=== PATIENT | male | born 1990 | race American Indian/Alaskan Native ===

== ENCOUNTER 2016-11-04 20:35 | Inpatient (IN) | payer OTHER ==
[2016-11-04] MEDS ORDERED: NACL 0.9% 1000 ML 1,000 ML ONE (20:40)
[2016-11-04] MEDS ORDERED: NACL 0.9% 1000 ML 1,000 ML IV ONE ×4 (20:49→22:39)
[2016-11-04] MEDS ORDERED: NARCAN 2 MG/2 ML IV ONE (20:49)
--- NOTE | 2016-11-04 20:51 | Emergency Department Report ---
HPI - General Time Seen by Provider: 11/04/16 20:48 - HPI HPI: This is a male who is in his 20s or 30s who presents to the emergency department by EMS from a motel room with suspicion of drug overdose. The people that called EMS say that he knocked on their door asking to speak to the persons . When he was told that the was not there, the patient allegedly asked if he could use the bathroom. He then went into the bathroom and appears to have used some type of drugs and passed out and became unresponsive there. He was found with some track wilson in the arm as well as a 1 mL syringe and needle next to him. Patient was given 4 mg of Narcan by EMS and he became more responsive but still only will open his eyes briefly and has been nonverbal. ED Past Medical Hx - Medications Home Medications: Home Medications Medication Instructions Recorded Confirmed Last Taken Type No Known Home Medications [No 11/04/16 11/04/16 Unknown History Reported Home Medications] ED Review of Systems ROS: Stated complaint: OVERDOSE Other details as noted in HPI Comment: Unobtainable due to pts medical conditions Physical Exam - Physical Exam Physical Exam: GENERAL: Patient is ill-appearing and unresponsive. HEENT: Normocephalic. Atraumatic. Pupils are pinpoint but equal and reactive. Patient has moist mucous membranes. NECK: Supple. Trachea is midline. CHEST/LUNGS: Clear to auscultation. There is no respiratory distress noted. HEART/CARDIOVASCULAR: Regular. There is no tachycardia. There is no gallop rub or murmur. ABDOMEN: Abdomen is soft. Patient has normal bowel sounds. There is no abdominal distention. SKIN: Skin is warm and dry. There are track wilson seen along the right forearm and antecubital fossa. NEURO: Patient is unresponsive to everything but painful stimuli. He will open his eyes but closes them immediately and has been nonverbal. MUSCULOSKELETAL: There is no tenderness or deformity. There is no limitation range of motion with passive movement. There is no evidence of acute injury. Cap refill less than 2 seconds. Radial pulse +2 over 4 bilaterally. - Central Line Placement Right Femoral Consent Obtained: verbal consent Time Out Performed: Yes Patient Placed on Monitor/Pulse Ox: Yes Prep: mask, gown, gloves Central Line Prep: Chlorhexidine scrub Local Anesthesia Used: Lidocaine 1% Amount of Anesthesia Used (mls): 2 Ultrasound Used for Placement: Yes Central Line Lumen Inserted: triple Bloods Obtained for Lab: Yes Central Line Position: good blood return, all ports aspirated, flus, sutured in place with nyl Dressing Applied: Tegaderm, sterile gauze/tape Patient Tolerated Procedure: well Complications: none ED Medical Decision Making - Lab Data Result diagrams: 11/04/16 21:06 11/04/16 21:06 - EKG Data -: EKG Interpreted by Me EKG shows normal: sinus rhythm, axis, intervals, QRS complexes, ST-T waves Rate: normal - EKG Data When compared to previous EKG there are: previous EKG unavailable Interpretation: normal EKG - Radiology Data Radiology results: report reviewed, image reviewed interpreted by me: Chest x-ray did not show any acute process. Heart is normal shape and size. No effusions. No pneumothorax. No signs of pneumonia seen. CT of the head does not show any acute process including no hemorrhage, mass, shift, diffuse edema or skull fracture. - Medical Decision Making This is a 26-year-old male who presents to the emergency department with altered mental status and unresponsive after allegedly doing heroin. Patient had some improvement with Narcan by EMS as well as here but he has not gone back to normal mentation. He is arousable but confused and/or nonverbal. He eventually had a CT of the brain that did not show any bleed, shift, mass or any acute process. Chest x-ray did not show any acute process as well. The patient's labs have been mostly unremarkable other than the urine drug screen positive for amphetamines, cocaine and marijuana. The drug screen for opiates was negative and the patient eventually admits to heroin use but obviously unknown if it was truly what he was injecting. Patient started having some bradycardia and hypotension. He got a total of 4 L of IV fluid and did not have any resolution so a central line was placed and the patient is currently on pressors. Patient will be admitted to the ICU and has been accepted for admission by the hospitalist, Dr. Holman. - Differential Diagnosis polysubstance abuse, CVA, VA, pneumothorax, TIA Critical Care Time: No Critical care attestation.: If time is entered above; I have spent that time in minutes in the direct care of this critically ill patient, excluding procedure time. ED Disposition Clinical Impression: Hypotension, Altered mental status, Polysubstance abuse Disposition: OP ADMITTED IP TO THIS HOSP Is pt being admited?: Yes Condition: Poor Time of Disposition: 01:22
[2016-11-04 21:13] LABS: Urine Drugs of Abuse Note Disclamer
[2016-11-04 21:25] LABS: Bacteria,Urine 1+ /HPF (Negative); Bilirubin,Urine NEG (Negative); Blood,Urine NEG (Negative); Ketones,Urine NEG (Negative); Leukocyte Esterase,Urine NEG (Negative); Mucus,Urine FEW /HPF; Nitrite,Urine NEG (Negative); Urobilinogen,Urine < 2.0 mg/dL (<2.0)
[2016-11-04 21:32] LABS: Basophils % (Auto) 0.4 % (0.0-1.8); Eosinophils % (Auto) 0.4 % (0.0-4.3); Hematocrit 40.1 % (35.5-45.6); Hemoglobin 13.4 gm/dl (11.8-15.2); Mean Corpuscular HGB Conc 34 % (32-34); Mean Corpuscular Hemoglobin 30 pg (28-32); Mean Corpuscular Volume 88 fl (84-94); Platelet Count 241 K/mm3 (140-440); Red Blood Count 4.55 M/mm3 (3.65-5.03); Red Cell Distribution Width 12.8 % (13.2-15.2); White Blood Count 10.2 K/mm3 (4.5-11.0)
[2016-11-04 21:45] LABS: Alanine Aminotransferase 13 units/L (7-56); Albumin 4.2 g/dL (3.9-5); Albumin/Globulin Ratio 1.7 %; Alkaline Phosphatase 80 units/L (35-129); Bilirubin,Total 0.2 mg/dL (0.1-1.2); Blood Urea Nitrogen 16 mg/dL (9-20); Calcium 8.4 mg/dL (8.4-10.2); Carbon Dioxide 25 mmol/L (22-30); Chloride 101.6 mmol/L (98-107); Glucose 154 mg/dL (75-100); Potassium 3.5 mmol/L (3.6-5.0); Sodium 140 mmol/L (137-145); Total Protein 6.7 g/dL (6.3-8.2)
[2016-11-04 21:46] LABS: Anion Gap 17 mmol/L; Creatine Kinase 197 units/L (55-170)
[2016-11-04] MEDS ORDERED: LEVOPHED DRIP 4 MG/NS 250 ML 250 ML IV SCH (23:45)
[2016-11-05] MEDS: ROCEPHIN/NS 1 GM/50 ML 50 ML IV SCH ×3 (00:40→13:36)
--- NOTE | 2016-11-05 01:14 | Cat Scan Report ---
FINAL REPORT EXAM: CT HEAD/BRAIN WO CON HISTORY: Altered Mental Status TECHNIQUE: Noncontrast CT axial images of the brain. PRIORS: None. FINDINGS: No parenchymal mass, mass effect, hemorrhage, midline shift or hydrocephalus. No evidence of acute cortical infarct. No abnormal, extra-axial fluid or air collection. Osseous calvarium grossly intact. IMPRESSION: 1. No acute intracranial findings.
[2016-11-05] MEDS: VANCOMYCIN/NS 1 GM/250 ML 250 ML IV SCH ×2 (01:53→13:28)
[2016-11-05] MEDS ORDERED: ZOFRAN IV PRN ×2 (02:26→14:30)
[2016-11-05] MEDS ORDERED: TYLENOL PO PRN ×2 (02:26→14:32)
--- NOTE | 2016-11-05 02:40 | History and Physical Report ---
History of Present Illness Date of examination: 11/05/16 Date of admission: 11/05/16 00:00 History of present illness: 6-year-old man with a history of substance abuse of brought to the emergency room because he overdosed. He was found by friends and EMS was called. Patient was given Narcan times 4, he is more awake but still drowsy. Her review of system is unobtainable. History per family at bedside PAST SURGICAL HISTORY: None SOCIAL HISTORY: He smokes, drinks, drug use FAMILY HISTORY: Hypertension Medications and Allergies Allergies Allergy/AdvReac Type Severity Reaction Status Date / Time No Known Allergies Allergy Verified 11/04/16 21:12 Home Medications Medication Instructions Recorded Confirmed Last Taken Type No Known Home Medications [No 11/04/16 11/04/16 Unknown History Reported Home Medications] Active Meds: Active Medications Acetaminophen (Tylenol) 650 mg PO Q4H PRN PRN Reason: Pain MILD(1-3)/Fever >100.5/DOYLE Enoxaparin Sodium (Lovenox) 40 mg SUB-Q QDAY PERLA Norepinephrine (Levophed Drip 4 Mg/Ns 250 Ml) 250 mls @ 7.5 mls/hr IV TITR PERLA ; 2 MCG/MIN PRN Reason: Protocol Last Admin: 11/05/16 00:20 Dose: 7.5 mls/hr Ceftriaxone Sodium (Rocephin/Ns 1 Gm/50 Ml) 50 mls @ 100 mls/hr IV Q24HR PERLA Last Admin: 11/05/16 01:45 Dose: Not Given Vancomycin HCl (Vancomycin/Ns 1 Gm/250 Ml) 250 mls @ 167 mls/hr IV Q8H PERLA PRN Reason: Protocol Last Admin: 11/05/16 01:53 Dose: 167 mls/hr Sodium Chloride (Nacl 0.9% 1000 Ml) 1,000 mls @ 150 mls/hr IV DIRECT PERLA Ondansetron HCl (Zofran) 4 mg IV Q8H PRN PRN Reason: N/V unrelieved by Reglan Exam - Physical Exam Narrative exam: Gen. appearance: Patient lying in bed, no apparent distress HEENT: Normocephalic, atraumatic, pupils equally round and reactive to light, extraocular movement intact, and no sclericterus,. No JVD or thyromegaly or nodule,neck supple, no carotid bruit ,mucous membranes moist, no exudate or erythema Heart: S1, S2, regular rate and rhythm Lungs: Clear to auscultation bilaterally, breathing comfortable Abdomen: Positive bowel sounds, nontender, nondistended, no organomegaly Extremity: No edema, cyanosis, clubbing Skin: No rash, nodules, warm, dry Neuro: Lethargic - Constitutional Vitals: Temp Pulse Resp BP Pulse Ox 95.5 F L 72 12 115/72 100 11/05/16 01:00 11/05/16 01:53 11/05/16 01:53 11/05/16 01:53 11/05/16 01:53 Results - Labs CBC & Chem 7: 11/04/16 21:06 11/04/16 21:06 - Imaging and Cardiology Chest x-ray: image reviewed (nad) CT Scan - head: report reviewed Assessment and Plan Drug overdose Hypotension, rule out infection Substance abuse Continue IV fluids, levophed Check cardiac enzymes, start empiric antibiotics Obtain blood cultures, consult critical care Start DVT prophylaxis
[2016-11-05] MEDS: LOVENOX SUB-Q SCH (10:00)
--- NOTE | 2016-11-05 10:45 | XRay Report ---
AP CHEST :11/04/16 20:35:00 CLINICAL: Altered mental status. COMPARISON:None. FINDINGS: Normal heart and pulmonary vasculature. The lungs are normally expanded and clear. The bones and soft tissues are normal. IMPRESSION: Normal chest.
--- NOTE | 2016-11-05 13:13 | Admit Criteria Form ---
Admission Criteria Documentation: CARDIOLOGY GRG Clinical Indications for Admission to Inpatient Care ( Place 'X' for any and all applicable criteria): Hospital admission is needed for appropriate care of the patient because of ANY ONE of the following (1): [xX ] I. Hemodynamic instability as indicated by ALL of the following (1)(2)( 3)(4)(5) [ X]a) Vital signs or other findings not as expected for chronic patient condition or baseline [ X]b) Instability indicated by ANY ONE of the following: [X ]i) Hypotension [ ]ii) Symptomatic Tachycardia unresponsive to treatment ( e.g., analgesia, fluids, sedation as indicated) [ ]iii) Inadequate perfusion indicated by ANY ONE of the following: [ ] 1) Lactic acidosis (> 2 mmol/L) [ ] 2) New abnormal capillary refill (> 3 seconds) [ ] 3) Reduced urine output [ ] 4) New altered mental status [ ]iv) Orthostatic vital sign changes unresponsive to treatment (e.g., fluids) [ ]v) IV inotropic or vasopressor medication required to maintain adequate blood pressure or perfusion [ ] II. Severe heart failure as indicated by ANY ONE of the following(17)(18) [ ]a) Respiratory distress [ ]b) Hypotension [ ]c) Anasarca (refractory to outpatient therapy) [ ]d) Cardiac arrhythmias of immediate concern [ ]e) Myocardial ischemia [ ] III. Cardiac arrhythmias or findings of immediate concern indicated by ANY ONE of the following (19)(20): [ ] a) Heart rhythms that are inherently dangerous or unstable indicated by ANY ONE of the following (21)(22)(23): [ ] i) Resuscitated ventricular fibrillation or cardiac arrest [ ] ii) Ventricular escape rhythm [ ] iii) Sustained ventricular tachycardia (30 seconds or more of ventricular rhythm at greater than 100 beats per minute) [ ] iv) Nonsustained ventricular tachycardia and ANY ONE of the following: [ ] 1) Suspected cardiac ischemia as cause or consequence of ventricular tachycardia [ ] 2) In setting of acute myocarditis [ ] b) Unstable cardiac conduction defects indicated by ANY ONE of the following(23)(24)(25) [ ] i) Type II second-degree atrioventricular block [ ]ii) Third-degree atrioventricular block [ ]iii) New-onset left bundle branch block with suspected myocardial ischemia [ ]c) Any heart rhythm and ANY ONE of the following (21)(22)(26)(27) (28) [ ] i) Continuous long-term ECG monitoring needed (e.g., initiation of drug requiring monitoring for more than 24 hours) [ ] ii) Patient has automatic implanted cardioverter defibrillator that is repeatedly firing, malfunctioning, or in need of immediate adjustment of settings beyond the scope of ambulatory or observation care [ ]d) Heart rhythms of concern due to ANY ONE of the following: [ ] i) Hypotension [ ] ii) Respiratory distress [ ] iii) Association with other significant symptoms (e.g., bradycardia with syncope or ongoing dizziness, supraventricular tachycardia with chest pain (14)(15)(17) [ ] IV. Monitoring for cardiac contusion beyond the scope of observation care needed [A](30)(31)(32) [ ] V. Surgical or device complication (e.g., valve replacement complication , pacemaker dysfunction) (35)(41)(44)(45)(46) [ ] . Inpatient palliative care needed. [B](49) Also use Inpatient Palliative Care Criteria [ ] VII. Nonbacterial thrombotic (marantic) endocarditis (36)(43)(47)(48) [ ] VIII. Cardiology condition, symptom, or finding for which emergency and observation care has failed or are not considered appropriate. [ ] IX. Acute valvular disease requiring inpatient as indicated by ANY ONE of the following (41) [ ]a) Acute valvular regurgitation (42) [ ]b) Noninfectious valvulitis (43) [ ]c) Obstructive valve thrombosis [ ]d) Paravalvular leak [ ]e) Other significant valvular disorder remaining after emergency or observation level of care (as appropriate) [ ]X. Pericardial disease requiring inpatient treatment as indicated by ANY ONE of the following (33)(34)(35)(36)(37) [ ]a) Suspected tamponade (38)(39)(40) [ ]b) Hemopericardium [ ]c) Other significant pericardial disorder remaining after emergency or observation level of care (as appropriate) [ ] XI. Cardiac ischemia beyond scope of emergency and observation care. [ ] XII. Hypertension requiring inpatient treatment as indicated by ANY ONE of the following (6)(7)(8) [ ]a) SBP greater than 220 mm Hg or DBP greater than 120 mmHg despite treatment [ ]b) SBP greater than 140 mm Hg or DBP greater than 100 mm Hg with evidence of acute end organ damage as indicated by ANY ONE of the following [ ] i) Altered mental status [ ] ii) Acute renal failure as indicated by new onset of ANY ONE of the following (9)(10)(11)(12)(13) [ ]1) 3-fold rise in serum creatinine from baseline [ ]2) Serum creatinine greater than 4 mg/dL ( 354 micromoles/L) with acute rise greater than 0.5 mg/dL (44.2 micromoles/L) [ ]3) Reduction of more than 75% in estimated glomerular filtration rate from baseline [ ]4) Estimated glomerular filtration rate less than 35 mL/min/1.73m2 (0.59 mL/sec/1.73m2) in child up to 18 years of age [ ]5) Cessation of urine output indicated by ALL of the following [ ]A. Adequate volume status [ ]B. Inadequate urine output as indicated by ANY ONE of the following [ ]a. Urine output less than 0.3 mL/kg/hr for 24 hours [ ]b. Anuria (urine output less than 0.1 mL/kg/hr) for 12 hours [ ] iii) Aortic dissection [ ] iv) Myocardial Ischemia [ ] v) Left ventricular heart failure [ ]vi) Retinal Hemorrhage [ ]vii) Other significant finding [ ]c) Hypertension in child requiring inpatient treatment as indicated by ALL of the following(14)(15)(16) [ ] i) Outpatient treatment not effective, not available, or not appropriate [ ]ii) SBP or DBP greater than 95th percentile for age [ ]iii) Evidence of acute end organ damage as indicated by ANY ONE of the following [ ]1) Altered mental status [ ]2) Acute renal failure as indicated by new onset of ANY ONE of the following(9)(10)(11)(12)(13) [ ]A. 3-fold rise in serum creatinine from baseline [ ]B. Serum creatinine greater than 4 mg/dL (354 micromoles/L) with acute rise greater than 0.5 mg/dL (44.2 micromoles/L) [ ]C. Reduction of more than 75% in estimated glomerular filtration rate from baseline [ ]D. Estimated glomerular filtration rate less than 35 mL/min/1.73m2 (0.59 mL/sec/1.73m2) in child up to 18 years of age [ ]E. Cessation of urine output indicated by ALL of the following [ ]a. Adequate volume status [ ]b. Inadequate urine output as indicated by ANY ONE of the following [ ]i) Urine output less than 0.3 mL/kg/hr for 24 hours [ ]ii) Anuria ( urine output less than 0.1 mL/kg/hr) for 12 hours [ ]3) Severe headache [ ]4) Visual disturbance [ ]5) Retinal hemorrhage [ ]6) Other significant finding [ ]XIII. Complications of transplanted heart indicated by ANY ONE of the following(61): [ ]a) Acute graft rejection requiring inpatient management (eg, intravenous immunosuppression)(62)(63) [ ]b) Acute graft heart failure indicated by ANY ONE of the following(64): [ ]i) Hemodynamic instability [ ]ii) Cardiac arrhythmias of immediate concern [ ]iii) Pulmonary edema that is very severe (eg, mechanical ventilation needed, imminent or likely, need for 100% oxygen to keep oxygen saturation above 90%) [ ]iv) Pulmonary edema that is persistent as indicated by ALL of the following: [ ]1) New need for oxygen therapy to keep oxygen saturation above 90% (or increased FiO2 need from baseline) [ ]2) Has not improved sufficiently with emergency department or observation care IV diuretics or other heart failure treatments[E] [ ]v) Altered mental status that is severe or persistent [ ]vi) Increased creatinine (new on laboratory test) with reduction of more than 50% in estimated glomerular filtration rate from baseline [ ]vii) Progressively (ongoing) rising creatinine (known from past laboratory test) with reduction of more than 25% in estimated glomerular filtration rate from baseline [ ]viii) Acute renal failure [ ]ix) Acute peripheral ischemia (eg, examination shows pulseless, cool, mottled, or cyanotic extremity) [ ]x) Pulmonary artery catheter monitoring needed [ ]xi) Other sign or symptom of heart failure requiring inpatient treatment (ie, too severe or not responsive to outpatient and observation care treatment) [ ]c) Infection requiring inpatient management (eg, Hemodynamic instability, need for intravenous antimicrobial treatment)(66)(67)(68)(69)(70) [ ]d) Cardiac allograft vasculopathy requiring inpatient management ( eg evidence of cardiac ischemia)(71) [ ]e) Other complication of transplanted heart (eg, stroke, severe pulmonary hypertension, severe valvular dysfunction) requiring inpatient management(72) The original [facility] content created by [facility] has been revised. The portions of the content which have been revised are identified through the use of italic text or in bold, and [facility] has neither reviewed nor approved the modified material. All other unmodified content is copyright [facility] [employer]. Please see references footnoted in the original [facility] [employer] edition 2016 Admission Criteria Met: Yes
[2016-11-05] MEDS: NACL 0.9% 1000 ML 1,000 ML IV SCH ×2 (14:31→22:59)
--- NOTE | 2016-11-05 16:37 | Progress Note ---
Assessment and Plan Assessment and plan: 1. Overdose with polysubstance abuse- with resolved metabolic encephalopathy- will consult psyche; patient not interested in rehab; monitor for signs of cocaine withdrawal 2. Hypotension- now resolved 3. Mild hypokalemia- will monitor; replace with po supplementation 4. DVT prophylaxis-lovenox History Interval history: f/u polysubstance overdose Patient seen at the bedside; father present; he admits overdosing on "h"; as this problem in the past and was kicked out of rehab 3 years ago Hospitalist Physical - Constitutional Vitals: Temp Pulse Resp BP Pulse Ox 97.7 F 66 12 117/72 98 11/05/16 03:00 11/05/16 02:30 11/05/16 02:30 11/05/16 02:30 11/05/16 02:30 General appearance: Present: no acute distress, cachectic - EENT Eyes: Present: PERRL, EOM intact. Absent: scleral icterus, conjunctival injection ENT: hearing intact, clear oral mucosa, no oropharyngeal erythema, no poor dentition - Neck Neck: Present: supple, normal ROM. Absent: enlarged thyroid, masses or JVD - Respiratory Respiratory effort: normal Respiratory: negative: diminished, rales, rhonchi, wheezing - Cardiovascular Rhythm: regular Heart Sounds: Present: S1 & S2. Absent: gallop - Extremities Extremities: no ischemia, pulses intact, pulses symmetrical Peripheral Pulses: within normal limits - Abdominal General gastrointestinal: soft, non-tender, non-distended, normal bowel sounds - Integumentary Integumentary: Present: clear - Psychiatric Psychiatric: appropriate mood/affect, intact judgment & insight, cooperative - Neurologic Neurologic: CNII-XII intact, moves all extremities Results - Labs CBC & Chem 7: 11/04/16 21:06 11/04/16 21:06 Labs: Laboratory Last Values WBC 10.2 K/mm3 (4.5-11.0) 11/04/16 21:06 RBC 4.55 M/mm3 (3.65-5.03) 11/04/16 21:06 Hgb 13.4 gm/dl (11.8-15.2) 11/04/16 21:06 Hct 40.1 % (35.5-45.6) 11/04/16 21:06 MCV 88 fl (84-94) 11/04/16 21:06 MCH 30 pg (28-32) 11/04/16 21:06 MCHC 34 % (32-34) 11/04/16 21:06 RDW 12.8 % (13.2-15.2) L 11/04/16 21:06 Plt Count 241 K/mm3 (140-440) 11/04/16 21:06 Lymph % (Auto) 12.6 % (13.4-35.0) L 11/04/16 21:06 Dickens % (Auto) 6.6 % (0.0-7.3) 11/04/16 21:06 Eos % (Auto) 0.4 % (0.0-4.3) 11/04/16 21:06 Baso % (Auto) 0.4 % (0.0-1.8) 11/04/16 21:06 Lymph # 1.3 K/mm3 (1.2-5.4) 11/04/16 21:06 Dickens # 0.7 K/mm3 (0.0-0.8) 11/04/16 21:06 Eos # 0.0 K/mm3 (0.0-0.4) 11/04/16 21:06 Baso # 0.0 K/mm3 (0.0-0.1) 11/04/16 21:06 Seg Neutrophils % 80.0 % (40.0-70.0) H 11/04/16 21:06 Seg Neutrophils # 8.1 K/mm3 (1.8-7.7) H 11/04/16 21:06 Sodium 140 mmol/L (137-145) 11/04/16 21:06 Potassium 3.5 mmol/L (3.6-5.0) L 11/04/16 21:06 Chloride 101.6 mmol/L (98-107) 11/04/16 21:06 Carbon Dioxide 25 mmol/L (22-30) 11/04/16 21:06 Anion Gap 17 mmol/L 11/04/16 21:06 BUN 16 mg/dL (9-20) 11/04/16 21:06 Creatinine 1.0 mg/dL (0.8-1.5) 11/04/16 21:06 Estimated GFR > 60 ml/min 11/04/16 21:06 BUN/Creatinine Ratio 16.00 % 11/04/16 21:06 Glucose 154 mg/dL (75-100) H 11/04/16 21:06 Lactic Acid 1.5 mmol/L (0.7-2.0) 11/04/16 21:06 Calcium 8.4 mg/dL (8.4-10.2) 11/04/16 21:06 Total Bilirubin 0.2 mg/dL (0.1-1.2) 11/04/16 21:06 AST 23 units/L (5-40) 11/04/16 21:06 ALT 13 units/L (7-56) 11/04/16 21:06 Alkaline Phosphatase 80 units/L (35-129) 11/04/16 21:06 Total Creatine Kinase 197 units/L (55-170) H 11/04/16 21:06 Troponin T < 0.010 ng/mL (0.00-0.029) 11/04/16 21:06 Total Protein 6.7 g/dL (6.3-8.2) 11/04/16 21:06 Albumin 4.2 g/dL (3.9-5) 11/04/16 21:06 Albumin/Globulin Ratio 1.7 % 11/04/16 21:06 Urine Color Yellow (Yellow) 11/04/16 20:54 Urine Turbidity Clear (Clear) 11/04/16 20:54 Urine pH 6.0 (5.0-7.0) 11/04/16 20:54 Ur Specific [place] 1.020 (1.003-1.030) 11/04/16 20:54 Urine Protein 100 mg/dl mg/dL (Negative) 11/04/16 20:54 Urine Glucose (UA) 50 mg/dL (Negative) 11/04/16 20:54 Urine Ketones Neg mg/dL (Negative) 11/04/16 20:54 Urine Blood Neg (Negative) 11/04/16 20:54 Urine Nitrite Neg (Negative) 11/04/16 20:54 Urine Bilirubin Neg (Negative) 11/04/16 20:54 Urine Urobilinogen < 2.0 mg/dL (<2.0) 11/04/16 20:54 Ur Leukocyte Esterase Neg (Negative) 11/04/16 20:54 Urine WBC (Auto) 4.0 /HPF (0.0-6.0) 11/04/16 20:54 Urine RBC (Auto) 2.0 /HPF (0.0-6.0) 11/04/16 20:54 Urine Bacteria (Auto) 1+ /HPF (Negative) 11/04/16 20:54 Hyaline Casts 1 /LPF 11/04/16 20:54 Urine Mucus Few /HPF 11/04/16 20:54 Salicylates < 0.3 mg/dL (2.8-20.0) L 11/04/16 21:06 Urine Opiates Screen Presumptive negative 11/04/16 20:54 Urine Methadone Screen Presumptive negative 11/04/16 20:54 Acetaminophen < 15.0 ug/mL (10.0-30.0) 11/04/16 21:06 Ur Barbiturates Screen Presumptive negative 11/04/16 20:54 Ur Phencyclidine Scrn Presumptive negative 11/04/16 20:54 Ur Amphetamines Screen Presumptive positive 11/04/16 20:54 U Benzodiazepines Scrn Presumptive negative 11/04/16 20:54 Urine Cocaine Screen Presumptive positive 11/04/16 20:54 U Marijuana (THC) Screen Presumptive positive 11/04/16 20:54 Drugs of Abuse Note Disclamer 11/04/16 20:54 Plasma/Serum Alcohol < 0.01 gm% (0-0.07) 11/04/16 21:06 - Imaging and Cardiology CT Scan - head: report reviewed (no abn)
[2016-11-05] MEDS: ZOSYN/NS 4.5GM/100ML 4.5 GM/100 ML VIAL IV SCH ×2 (19:50→22:43)
[2016-11-05] MEDS ORDERED: ZOSYN/NS 4.5GM/100ML 4.5 GM/100 ML VIAL IV SCH (22:00)
[2016-11-05 22:25] LABS: Creatine Kinase MB 1.6 ng/mL (0.0-4.0)
[2016-11-05 22:26] LABS: Creatine Kinase 79 units/L (55-170)
[2016-11-06] MEDS: ZOSYN/NS 4.5GM/100ML 4.5 GM/100 ML VIAL IV SCH ×3 (04:34→21:13)
[2016-11-06] MEDS: NACL 0.9% 1000 ML 1,000 ML IV SCH ×2 (05:42→12:22)
[2016-11-06 06:14] LABS: Basophils % (Auto) 0.7 % (0.0-1.8); Eosinophils % (Auto) 1.2 % (0.0-4.3); Hemoglobin 12.7 gm/dl (11.8-15.2); Mean Corpuscular HGB Conc 34 % (32-34); Mean Corpuscular Hemoglobin 30 pg (28-32); Mean Corpuscular Volume 89 fl (84-94); Platelet Count 204 K/mm3 (140-440); Red Blood Count 4.27 M/mm3 (3.65-5.03); Red Cell Distribution Width 13.1 % (13.2-15.2); White Blood Count 6.4 K/mm3 (4.5-11.0)
[2016-11-06 06:27] LABS: Anion Gap 17 mmol/L; Blood Urea Nitrogen 8 mg/dL (9-20); Calcium 8.2 mg/dL (8.4-10.2); Carbon Dioxide 23 mmol/L (22-30); Chloride 101.6 mmol/L (98-107); Glucose 100 mg/dL (75-100); Potassium 3.9 mmol/L (3.6-5.0); Sodium 138 mmol/L (137-145)
[2016-11-06 06:32] LABS: Creatine Kinase MB 1.2 ng/mL (0.0-4.0)
[2016-11-06 06:36] LABS: Creatine Kinase 64 units/L (55-170)
[2016-11-06] MEDS: LOVENOX SUB-Q SCH (10:22)
[2016-11-06] MEDS: PROTONIX PO SCH (10:22)
--- NOTE | 2016-11-06 15:20 | Progress Note ---
Assessment and Plan Assessment and plan: 1.Overdose with polysubstance abuse-with resolved metabolic encephalopathy- f/u psyche for further recommendations 2. Mild hypokalemia-resolved 3. DVT prophylaxis-lovenox History Interval history: f/u polysubstance overdose Patient seen at the bedside; no complaints today Hospitalist Physical - Constitutional Vitals: Temp Pulse Resp BP Pulse Ox 98.1 F 60 20 102/64 99 11/06/16 07:15 11/06/16 07:15 11/06/16 07:15 11/06/16 07:15 11/06/16 07:15 General appearance: Present: no acute distress, cachectic - EENT Eyes: Present: PERRL, EOM intact. Absent: scleral icterus, conjunctival injection ENT: hearing intact, clear oral mucosa, no oropharyngeal erythema, no poor dentition - Neck Neck: Present: supple, normal ROM. Absent: enlarged thyroid - Respiratory Respiratory effort: normal Respiratory: negative: diminished, rales, rhonchi, wheezing - Cardiovascular Rhythm: regular Heart Sounds: Present: S1 & S2. Absent: gallop - Extremities Extremities: no ischemia, pulses intact, pulses symmetrical, No edema, normal temperature Peripheral Pulses: within normal limits - Abdominal General gastrointestinal: soft, non-tender, non-distended - Integumentary Integumentary: Present: clear - Psychiatric Psychiatric: appropriate mood/affect, intact judgment & insight - Neurologic Neurologic: CNII-XII intact, moves all extremities Results - Labs CBC & Chem 7: 11/06/16 05:26 11/06/16 05:26 Labs: Laboratory Last Values WBC 6.4 K/mm3 (4.5-11.0) 11/06/16 05:26 RBC 4.27 M/mm3 (3.65-5.03) 11/06/16 05:26 Hgb 12.7 gm/dl (11.8-15.2) 11/06/16 05:26 Hct 38.0 % (35.5-45.6) 11/06/16 05:26 MCV 89 fl (84-94) 11/06/16 05:26 MCH 30 pg (28-32) 11/06/16 05:26 MCHC 34 % (32-34) 11/06/16 05:26 RDW 13.1 % (13.2-15.2) L 11/06/16 05:26 Plt Count 204 K/mm3 (140-440) 11/06/16 05:26 Lymph % (Auto) 24.3 % (13.4-35.0) 11/06/16 05:26 [place] % (Auto) 7.1 % (0.0-7.3) 11/06/16 05:26 Eos % (Auto) 1.2 % (0.0-4.3) 11/06/16 05:26 Baso % (Auto) 0.7 % (0.0-1.8) 11/06/16 05:26 Lymph # 1.6 K/mm3 (1.2-5.4) 11/06/16 05:26 [place] # 0.5 K/mm3 (0.0-0.8) 11/06/16 05:26 Eos # 0.1 K/mm3 (0.0-0.4) 11/06/16 05:26 Baso # 0.0 K/mm3 (0.0-0.1) 11/06/16 05:26 Seg Neutrophils % 66.7 % (40.0-70.0) 11/06/16 05:26 Seg Neutrophils # 4.3 K/mm3 (1.8-7.7) 11/06/16 05:26 Sodium 138 mmol/L (137-145) 11/06/16 05:26 Potassium 3.9 mmol/L (3.6-5.0) 11/06/16 05:26 Chloride 101.6 mmol/L (98-107) 11/06/16 05:26 Carbon Dioxide 23 mmol/L (22-30) 11/06/16 05:26 Anion Gap 17 mmol/L 11/06/16 05:26 BUN 8 mg/dL (9-20) L 11/06/16 05:26 Creatinine 0.8 mg/dL (0.8-1.5) 11/06/16 05:26 Estimated GFR > 60 ml/min 11/06/16 05:26 BUN/Creatinine Ratio 10.00 % 11/06/16 05:26 Glucose 100 mg/dL (75-100) 11/06/16 05:26 Lactic Acid 1.5 mmol/L (0.7-2.0) 11/04/16 21:06 Calcium 8.2 mg/dL (8.4-10.2) L 11/06/16 05:26 Total Bilirubin 0.2 mg/dL (0.1-1.2) 11/04/16 21:06 AST 23 units/L (5-40) 11/04/16 21:06 ALT 13 units/L (7-56) 11/04/16 21:06 Alkaline Phosphatase 80 units/L (35-129) 11/04/16 21:06 Total Creatine Kinase 64 units/L (55-170) 11/06/16 05:26 CK-MB (CK-2) 1.2 ng/mL (0.0-4.0) 11/06/16 05:26 CK-MB (CK-2) Rel Index 1.8 (0-4) 11/06/16 05:26 Troponin T < 0.010 ng/mL (0.00-0.029) 11/06/16 05:26 Total Protein 6.7 g/dL (6.3-8.2) 11/04/16 21:06 Albumin 4.2 g/dL (3.9-5) 11/04/16 21:06 Albumin/Globulin Ratio 1.7 % 11/04/16 21:06 Urine Color Yellow (Yellow) 11/04/16 20:54 Urine Turbidity Clear (Clear) 11/04/16 20:54 Urine pH 6.0 (5.0-7.0) 11/04/16 20:54 Ur Specific [place] 1.020 (1.003-1.030) 11/04/16 20:54 Urine Protein 100 mg/dl mg/dL (Negative) 11/04/16 20:54 Urine Glucose (UA) 50 mg/dL (Negative) 11/04/16 20:54 Urine Ketones Neg mg/dL (Negative) 11/04/16 20:54 Urine Blood Neg (Negative) 11/04/16 20:54 Urine Nitrite Neg (Negative) 11/04/16 20:54 Urine Bilirubin Neg (Negative) 11/04/16 20:54 Urine Urobilinogen < 2.0 mg/dL (<2.0) 11/04/16 20:54 Ur Leukocyte Esterase Neg (Negative) 11/04/16 20:54 Urine WBC (Auto) 4.0 /HPF (0.0-6.0) 11/04/16 20:54 Urine RBC (Auto) 2.0 /HPF (0.0-6.0) 11/04/16 20:54 Urine Bacteria (Auto) 1+ /HPF (Negative) 11/04/16 20:54 Hyaline Casts 1 /LPF 11/04/16 20:54 Urine Mucus Few /HPF 11/04/16 20:54 Salicylates < 0.3 mg/dL (2.8-20.0) L 11/04/16 21:06 Urine Opiates Screen Presumptive negative 11/04/16 20:54 Urine Methadone Screen Presumptive negative 11/04/16 20:54 Acetaminophen < 15.0 ug/mL (10.0-30.0) 11/04/16 21:06 Ur Barbiturates Screen Presumptive negative 11/04/16 20:54 Ur Phencyclidine Scrn Presumptive negative 11/04/16 20:54 Ur Amphetamines Screen Presumptive positive 11/04/16 20:54 U Benzodiazepines Scrn Presumptive negative 11/04/16 20:54 Urine Cocaine Screen Presumptive positive 11/04/16 20:54 U Marijuana (THC) Screen Presumptive positive 11/04/16 20:54 Drugs of Abuse Note Disclamer 11/04/16 20:54 Plasma/Serum Alcohol < 0.01 gm% (0-0.07) 11/04/16 21:06
[2016-11-07] MEDS: ZOSYN/NS 4.5GM/100ML 4.5 GM/100 ML VIAL IV SCH (04:12)
[2016-11-07] MEDS: NACL 0.9% 1000 ML 1,000 ML IV SCH (04:12)
[2016-11-07] MEDS: LOVENOX SUB-Q SCH (10:00)
[2016-11-07] MEDS: PROTONIX PO SCH (10:00)
--- NOTE | 2016-11-07 13:52 | Discharge Summary ---
Providers - Providers Date of Admission: 11/05/16 00:00 Date of discharge: 11/07/16 Attending physician: EDMAR SAL 11/05/16 16:30 Consult to Mental Health [CONS] Routine Reason For Exam: heroin overdose Place consult to:: psyche Notified:: yes Was contact made?: Yes Primary care physician: GLUE COOK Hospitalization Reason for admission: drug overdose Condition: Poor Procedures: CT head - normal Hospital course: Mr. Andrews is a 26 yo M with history of polysubstance abuse and he was brought in by EMS for drug overdose; he was given mutiple doses of narcan; he returned to baseline within 24 hours; he was evaluated by mental health and given resources to get the assistance he needed. Condition at discharge-stable 31 minutes spent on discharge Disposition: DISCHARGED TO HOME OR SELFCARE - Discharge Diagnoses (1) Metabolic encephalopathy Status: Acute (2) Metabolic encephalopathy Status: Acute (3) Overdose Status: Acute Qualifiers: Encounter type: E Injury intent: I (4) Polysubstance abuse Status: Acute Core Measure Documentation - Palliative Care Palliative Care/ Comfort Measures: Not Applicable - Core Measures Any of the following diagnoses?: none Exam - Constitutional Vitals: Temp Pulse Resp BP Pulse Ox 98.6 F 60 20 139/89 97 11/07/16 11:10 11/07/16 11:10 11/07/16 11:10 11/07/16 11:10 11/07/16 11:10 General appearance: Present: no acute distress, well-nourished - EENT Eyes: Present: PERRL, EOM intact. Absent: scleral icterus, conjunctival injection ENT: hearing intact, clear oral mucosa, no oropharyngeal erythema, no poor dentition - Neck Neck: Present: supple, normal ROM. Absent: enlarged thyroid, masses or JVD - Respiratory Respiratory effort: normal Respiratory: negative: diminished, rales, rhonchi, wheezing - Cardiovascular Rhythm: regular Heart Sounds: Present: S1 & S2. Absent: gallop - Extremities Extremities: no ischemia, pulses intact, pulses symmetrical, No edema - Abdominal General gastrointestinal: Present: soft, non-tender, non-distended Male genitourinary: Present: deferred - Rectal Rectal Exam: deferred - Integumentary Integumentary: Present: clear - Musculoskeletal Musculoskeletal: strength equal bilaterally - Neurologic Neurologic: CNII-XII intact, moves all extremities Plan Activity: no restrictions Diet: regular Special Instructions: follow up in rehab Additional Instructions: f/u resources given as per mental health Follow up with: PRIMARY CAREMD [Primary Care Provider] - 7 Days
[2016-11-07 18:20] VITALS: BP 126/62
== END 2016-11-07 19:17 | disposition home or self-care (01) | DRG 917 ==
LOC: EDBD → ED 20:35 → CC1 11-05 → 4A 11-05 14:20
PROVIDERS: ADMIT Internal Medicine; ATTEND Hospitalist
DX: T50.901A Poisoning by unspecified drugs, medicaments and biological substances, accidental (unintentional), initial encounter (principal); G93.41 Metabolic encephalopathy; F17.200 Nicotine dependence, unspecified, uncomplicated; I95.9 Hypotension, unspecified; F19.10 Other psychoactive substance abuse, uncomplicated; E87.6 Hypokalemia; Y92.89 Other specified places as the place of occurrence of the external cause; Y93.89 Activity, other specified; Y99.8 Other external cause status; Z82.49 Family history of ischemic heart disease and other diseases of the circulatory system
CPT/HCPCS: 36415; 70450; 71010; 80048; 80053; 80307; 80320; 81001; 82140; 82550; 82553; 84484; 85025; 87040; 96374; G0480; J0696; J1650; J2310; J2543; J3370; J7030

== ENCOUNTER 2016-12-13 23:12 | Emergency (ER) | payer SELFPAY ==
[2016-12-14 01:07] VITALS: BP 117/67
[2016-12-14] MEDS ORDERED: BOOSTRIX IM ONE (01:17)
--- NOTE | 2016-12-14 01:26 | Emergency Department Report ---
Upper Extremity - HPI Chief Complaint: Extremity Injury, Upper Stated Complaint: LT THUMB PAIN Time Seen by Provider: 12/14/16 01:09 Upper Extremity: Left Hand (left thumb abrasion), Right Hand Occurred When: Today Mechanism: Other (cut against the glass) Symptoms: Yes Pain with Movement, Yes Laceration or Abrasion (left thumb. ), No Deformity, No Limited Range of Movement, No Numbness, No Weakness, No Swelling ED Review of Systems ROS: Stated complaint: LT THUMB PAIN Other details as noted in HPI Comment: All other systems reviewed and negative Constitutional: denies: chills, fever Eyes: denies: eye pain, eye discharge, vision change ENT: denies: ear pain, throat pain Respiratory: denies: cough, shortness of breath, wheezing Cardiovascular: denies: chest pain, palpitations Endocrine: no symptoms reported Gastrointestinal: denies: abdominal pain, nausea, diarrhea Genitourinary: denies: urgency, dysuria Musculoskeletal: as per HPI, other (left thumb abrasion. right hand selling / pain). denies: back pain, joint swelling, arthralgia Skin: denies: rash, lesions Neurological: denies: headache, weakness, paresthesias Psychiatric: denies: anxiety, depression Hematological/Lymphatic: denies: easy bleeding, easy bruising ED Past Medical Hx - Past Medical History Previous Medical History?: Yes Additional medical history: Hep C. HEART MURMUR. HYPERTHYROID. Heroin abuse, marijuana abuse - Surgical History Additional Surgical History: fx left jaw 05/2016 - Social History Smoking Status: Current Every Day Smoker Substance Use Type: Alcohol - Medications Home Medications: Home Medications Medication Instructions Recorded Confirmed Last Taken Type HYDROcodone/APAP 5-325 [[place] 1 each PO Q6HR PRN #20 tablet 06/09/16 Unknown Rx 5-325 mg TAB] Ibuprofen [Motrin 800 MG tab] 800 mg PO Q8HR PRN #14 tablet 06/09/16 Unknown Rx Diclofenac Sodium 75 mg PO BID #20 tablet. 12/14/16 Unknown Rx Upper Extremity Exam - Exam General: Vital signs noted. No distress. Alert and acting appropriately. Head and Torso: No HEENT Abnormality, No Neck Tenderness, No Chest/Lungs Abnormality, No Abdominal Tenderness, No Back Tenderness Shoulder Exam: Yes Normal Range of Motion in Shoulder, No Shoulder Tenderness, No Clavicle Tenderness, No Shoulder Deformity, No AC Joint Tenderness Arm Exam: No Arm/Humerus Tenderness, No Arm Deformity Elbow: No Elbow Tenderness, No Normal Range of Motion in Elbow, No Elbow Deformity Forearm: No Forearm Tenderness, No Forearm Deformity, No Pain with Pronation, No Pain with Supination Wrist: Yes Normal ROM in Wrist, No Wrist Tenderness, No Wrist Deformity, No Snuffbox Tenderness, No Pain with Axial Thumb Compression Hand: Yes Hand Tenderness (dorsal right hand), Yes Normal ROM in Digit(s), Yes Digit(s) Deformity (abrasion to left thumb), No Hand Deformity, No Digit Tenderness, No Tendon Dysfunction CMS Exam: Yes Broken Skin, No Normal Distal Pulses, No Normal Capillary Refill, No Normal Distal Sensation ED Course Vital Signs 12/14/16 00:56 Temperature 98.5 F Pulse Rate 111 H Respiratory 18 Rate Blood Pressure 117/67 O2 Sat by Pulse 95 Oximetry ED Medical Decision Making - Radiology Data Radiology results: report reviewed, image reviewed (no acute fracture) Critical care attestation.: If time is entered above; I have spent that time in minutes in the direct care of this critically ill patient, excluding procedure time. ED Disposition Clinical Impression: Abrasion of left thumb, initial encounter Qualifiers: Encounter type: initial encounter Qualified Code(s): S60.312A - Abrasion of left thumb, initial encounter Contusion of hand(s) Qualifiers: Encounter type: initial encounter Laterality: right Qualified Code(s): S60.221A - Contusion of right hand, initial encounter Disposition: DISCHARGED TO HOME OR SELFCARE Is pt being admited?: No Does the pt Need Aspirin: No Condition: Good Instructions: Contusion in Adults (ED), Abrasion (ED) Prescriptions: Diclofenac Sodium 75 mg PO BID #20 tablet.dr Referrals: MUSA MOON MD [Staff Physician] - 3-5 Days
--- NOTE | 2016-12-15 07:37 | XRay Report ---
FINAL REPORT EXAM: XR HAND BILAT 2V HISTORY: injury/fb TO BOTH HANDS COMPARISON: None available. FINDINGS: Two views of each hand obtained. No radiopaque foreign body. Bony structures are intact. Joint spaces are preserved. No acute fracture dislocation. IMPRESSION: No acute bony abnormality. No radiopaque foreign body.
== END 2016-12-14 04:39 | disposition home or self-care (01) ==
LOC: ED 23:12
DX: S60.312A Abrasion of left thumb, initial encounter (principal); S60.221A Contusion of right hand, initial encounter; F17.200 Nicotine dependence, unspecified, uncomplicated; E05.90 Thyrotoxicosis, unspecified without thyrotoxic crisis or storm; F15.10 Other stimulant abuse, uncomplicated; F11.10 Opioid abuse, uncomplicated; Z79.1 Long term (current) use of non-steroidal anti-inflammatories (NSAID); W25.XXXA Contact with sharp glass, initial encounter; Y93.89 Activity, other specified; Y99.8 Other external cause status; Y92.89 Other specified places as the place of occurrence of the external cause
CPT/HCPCS: 90471; 90715

== ENCOUNTER 2020-11-05 13:14 | Emergency (ER) | payer SELFPAY ==
[2020-11-05] MEDS ORDERED: NALOXONE 0.4 MG/1 ML INJ IV PRN (13:35)
[2020-11-05] MEDS ORDERED: ONDANSETRON 4 MG ODT TAB PO ONE (13:35)
[2020-11-05 14:12] LABS: Basophils # (Auto) 0.1 K/mm3 (0.0-0.1); Basophils % (Auto) 0.4 % (0.0-1.8); Eosinophils # (Auto) 0.4 K/mm3 (0.0-0.4); Eosinophils % (Auto) 2.4 % (0.0-4.3); Hematocrit 43.1 % (35.5-45.6); Hemoglobin 14.7 gm/dl (11.8-15.2); Lymphocytes # (Auto) 2.4 K/mm3 (1.2-5.4); Lymphocytes % (Auto) 15.4 % (13.4-35.0); Mean Corpuscular HGB Conc 34 % (32-34); Mean Corpuscular Volume 92 fl (84-94); Monocytes # (Auto) 0.8 K/mm3 (0.0-0.8); Platelet Count 290 K/mm3 (140-440); Red Blood Count 4.67 M/mm3 (3.65-5.03); Red Cell Distribution Width 12.4 % (13.2-15.2)
--- NOTE | 2020-11-05 14:14 | Cat Scan Report ---
CT HEAD WITHOUT CONTRAST INDICATION / CLINICAL INFORMATION: Syncope. TECHNIQUE: Axial imaging performed from the skull apex through the skull base without the use of cont rast. Sagittal and coronal reformatted images. All CT scans at this location are performed using CT dose reduction for ALARA by means of automated exposure control. COMPARISON: 11/05/2016 FINDINGS: CEREBRAL PARENCHYMA: No significant abnormality. No acute territorial infarct. HEMORRHAGE: None. EXTRA-AXIAL SPACES: Normal in size and morphology for the patient's age. VENTRICULAR SYSTEM: Normal in size and morphology for the patient's age. MIDLINE SHIFT OR HERNIATION: None. CEREBELLUM / BRAINSTEM: No significant abnormality. CALVARIUM: No significant abnormality. ORBITS: Normal as visualized. PARANASAL SINUSES / MASTOID AIR CELLS: Normal as visualized. SOFT TISSUES of HEAD: No significant abnormality. ADDITIONAL FINDINGS: None. IMPRESSION: No acute intracranial abnormality. No change since 2016. Signer Name: Russ Schmitz Jr, MD Signed: 11/05/2020 2:10 PM Workstation Name: [id number]
[2020-11-05 14:23] LABS: INR 0.94 (0.87-1.13)
[2020-11-05 14:31] LABS: Creatine Kinase MB 10.8 ng/mL (0.0-4.0)
[2020-11-05 14:32] LABS: Alanine Aminotransferase 24 units/L (7-56); Albumin 4.6 g/dL (3.9-5); BUN/Creatinine Ratio 10; Blood Urea Nitrogen 11 mg/dL (9-20); Calcium 9.4 mg/dL (8.4-10.2); Hemolysis Index 14
--- NOTE | 2020-11-05 14:43 | XRay Report ---
CHEST 1 VIEW INDICATION: Syncope. COMPARISON: 11/04/2016 FINDINGS: Support devices: None. Heart: Normal. Lungs/Pleura: No acute pulmonary or pleural findings. IMPRESSION: 1. No acute findings. Signer Name: Panchito Kaplan MD Signed: 11/05/2020 2:39 PM Workstation Name: [id number]
[2020-11-05] MEDS ORDERED: SODIUM CHLORIDE 0.9% 1000 ML 1,000 ML IV ONE (16:07)
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
[2020-11-05] MEDS ORDERED: ONDANSETRON 4 MG/2 ML INJ ONE (16:47)
[2020-11-05] MEDS: SODIUM CHLORIDE 0.9% 1000 ML 1,000 ML IV ONE (16:56)
[2020-11-05] MEDS ORDERED: ACETAMINOPHEN 500 MG TAB PO ONE (18:00)
== END 2020-11-05 18:00 | disposition home or self-care (01) ==
LOC: ED 13:14
DX: R55 Syncope and collapse (principal); E86.0 Dehydration; R74.8 Abnormal levels of other serum enzymes; F17.200 Nicotine dependence, unspecified, uncomplicated; Z21 Asymptomatic human immunodeficiency virus [HIV] infection status; Z79.899 Other long term (current) drug therapy
CPT/HCPCS: 36415; 70450; 71045; 80053; 82140; 82550; 82553; 83615; 83735; 84484; 85025; 85379; 85610; 86850; 86900; 86901; 87040; 96360; 99285; J2405; J7030

== ENCOUNTER 2020-11-07 18:12 | Emergency (ER) | payer SELFPAY ==
[2020-11-07 18:32] VITALS: BP 130/87
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
== END 2020-11-07 19:56 | disposition left against medical advice (07) ==
LOC: ED 18:12
DX: R52 Pain, unspecified (principal); Z53.21 Procedure and treatment not carried out due to patient leaving prior to being seen by health care provider

== ENCOUNTER 2021-03-08 11:44 | Outpatient (CLI) | payer OTHER ==
[2021-03-12 23:23] LABS: CD4/CD8 Ratio 0.96 (0.86-5.00)
== END 2021-03-08 11:45 | disposition home or self-care (01) ==
LOC: LAB 11:44
PROVIDERS: ATTEND Internal Medicine
DX: B20 Human immunodeficiency virus [HIV] disease (principal); F79 Unspecified intellectual disabilities
CPT/HCPCS: 36415; 82024

== ENCOUNTER 2021-11-05 16:43 | Emergency (ER) | payer SELFPAY | END 2021-11-05 16:50 | disposition left against medical advice (07) | LOC: ED 16:43 | DX: F19.90 Other psychoactive substance use, unspecified, uncomplicated (principal); Z53.21 Procedure and treatment not carried out due to patient leaving prior to being seen by health care provider ==

== ENCOUNTER 2022-02-22 05:57 | Emergency (ER) | payer SELFPAY ==
[2022-02-22 06:18] VITALS: BP 131/82
[2022-02-22 07:00] LABS: Bilirubin,Urine NEG (Negative); Blood,Urine NEG (Negative); Color,Urine Yellow (Yellow); Mucus,Urine FEW /HPF; Protein,Urine <15 mg/dL mg/dL (Negative); Urobilinogen,Urine < 2.0 mg/dL (<2.0)
== END 2022-02-22 19:00 | disposition left against medical advice (07) ==
LOC: ED 05:57
DX: N28.9 Disorder of kidney and ureter, unspecified (principal); Z53.21 Procedure and treatment not carried out due to patient leaving prior to being seen by health care provider
CPT/HCPCS: 81001; 87086